=== PATIENT | male | born 1995 | race African-American/Black ===

== ENCOUNTER 2019-04-08 21:42 | Emergency (ER) | payer MEDICAID ==
--- NOTE | 2019-04-08 21:46 | NUR ---
ED Nurse Note: Calling Pt first time in waiting room, Pt is not in waiting room
--- NOTE | 2019-04-08 21:59 | NUR ---
ED Nurse Note: Calling Pt 2nd time, Pt is not in waiting room
--- NOTE | 2019-04-08 22:27 | NUR ---
ED Nurse Note: Calling Pt final time, Pt is not in waiting room.
== END 2019-04-08 22:27 | disposition left against medical advice (07) ==
LOC: EMR 21:45
DX: Z53.21 Procedure and treatment not carried out due to patient leaving prior to being seen by health care provider (principal)

== ENCOUNTER 2019-04-08 22:48 | Emergency (ER) | payer MEDICAID ==
[~2019-04-08] VITALS: Ht 170.2 cm; Wt 69.4 kg
[2019-04-08 22:56] VITALS: BP 127/75
--- NOTE | 2019-04-08 22:56 | NUR ---
ED Nurse Note: Pt arrived ED from home, c/o to R/O STD and for Medications. Pt is A/O X 4. Vital signs stable at this time, waiting for orders.
--- NOTE | 2019-04-08 23:18 | Emergency Room Report ---
History of Present Illness General Chief Complaint: Male Urogenital Problems Source: Patient Present Illness HPI Patient recently told he has syphilis in the early stages. He denies any fevers , chills, rashes, skin lesions, dysuria. He was sent here to get the penicillin G shot IM. Allergies: Coded Allergies: No Known Allergies (Unverified , 04/08/19) Patient History Past Medical History: see triage record Social History: Reports: smoking Social History Narrative With girlfriend Reviewed Nursing Documentation: PMH: Agreed; PSxH: Agreed Nursing Documentation-PMH Hx Asthma: Yes Review of Systems All Other Systems: negative except mentioned in HPI Physical Exam Vital Signs Date Time Temp Pulse Resp B/P (MAP) Pulse Ox O2 Delivery O2 Flow Rate FiO2 04/08/19 22:50 98.2 84 18 98 Room Air General Appearance: well appearing, no apparent distress, GCS 15 Head: normocephalic, atraumatic Eyes: bilateral eye normal inspection, bilateral eye PERRL ENT: hearing grossly normal, normal voice Neck: full range of motion, supple Respiratory: no respiratory distress, speaking full sentences Cardiovascular #1: regular rate, rhythm Cardiovascular #2: 2+ radial (R) Gastrointestinal: normal inspection Genitourinary: deferred Musculoskeletal: digits/nails normal, gait/station normal Neurologic: alert, oriented x3, normal gait, grossly normal Psychiatric: mood/affect normal Skin: no rash Medical Decision Making Diagnostic Impression: Primary Impression: STD (male) ER Course Patient presents for penicillin G shot with a history of having a positive test for syphilis. Urinalysis is ordered. Pen G is ordered. Urinalysis clear. Patient tolerated shot without difficulty. Discussed the need to follow-up with his doctors. Patient stable for outpatient observation and treatment. Laboratory Tests Test 04/08/19 23:09 Urine Color Yellow Urine Appearance Clear Urine pH 6 (4.5-8.0) Urine Specific [place] 1.020 (1.005-1.035) Urine Protein Negative (NEGATIVE) Urine Glucose (UA) Negative (NEGATIVE) Urine Ketones 1+ (NEGATIVE) H Urine Blood Negative (NEGATIVE) Urine Nitrite Negative (NEGATIVE) Urine Bilirubin Negative (NEGATIVE) Urine Urobilinogen 1 MG/DL (0.0-1.0) H Urine Leukocyte Esterase 1+ (NEGATIVE) H Urine RBC 0-2 /HPF (0 - 0) H Urine WBC 0-2 /HPF (0 - 0) Urine Squamous Epithelial Cells Occasional /LPF Urine Bacteria Occasional /HPF (NONE) Chlamydia trachomatis RNA Pending Neisseria gonorrhoeae RNA Pending Last Vital Signs Date Time Temp Pulse Resp B/P (MAP) Pulse Ox O2 Delivery O2 Flow Rate FiO2 04/09/19 00:17 98.2 82 18 127/75 98 Room Air Status: improved Disposition: HOME, SELF-CARE Condition: Improved Darryl Boyd MD April 08, 2019 23:18
[2019-04-08 23:27] LABS: APPEARANCE,URINE CLEAR; BILIRUBIN, URINE NEGATIVE (NEGATIVE); GLUCOSE, URINE (UA) NEGATIVE (NEGATIVE); KETONES,URINE 1+ (NEGATIVE); LEUKOCYTE ESTERASE ,URINE 1+ (NEGATIVE); NITRITE,URINE NEGATIVE (NEGATIVE); PH,URINE 6 (4.5-8.0); PROTEIN,URINE NEGATIVE (NEGATIVE); UROBILINOGEN,URINE 1 MG/DL (0.0-1.0)
[2019-04-08 23:29] LABS: COLOR,URINE YELLOW
[2019-04-08] MEDS ORDERED: Bicillin LA 2.4MMU/4ML SYR IM ONE (23:30)
--- NOTE | 2019-04-09 | NUR ---
ED Nurse Note: Meds given as ordered.
[2019-04-09 00:17] VITALS: BP 127/75
--- NOTE | 2019-04-09 00:17 | NUR ---
ER DISCHARGE NOTE: Patient is cleared to be discharged per Dr. Boyd. Pt is aox4 on room air with stable vital signs. Pt was given dc and prescription instructions and was able to verbalize understanding. Pt's ID band removed. Pt is able to ambulate with steady gait and took all belongings. Accompanied by his girlfriend.
== END 2019-04-09 00:17 | disposition home or self-care (01) ==
LOC: EMR 23:25
DX: J45.909 Unspecified asthma, uncomplicated (principal)
CPT/HCPCS: 81003; 87491; 87590; 96372; 99283

== ENCOUNTER 2019-05-30 16:03 | Emergency (ER) | payer MEDICAID ==
[~2019-05-30] VITALS: Ht 170.2 cm; Wt 70.3 kg
[2019-05-30 16:05] VITALS: BP 128/86
--- NOTE | 2019-05-30 16:10 | NUR ---
ED Nurse Note: pt brought by RA from home with girlfriend due to abdominal pain that started around 0200. pt had 4 episodes of vomiting. per pt, it was undigestive food. denies any nausea at this time. had regular BM this afternoon. AAO x4. respirations even and non-labored noted. will wait for the further order.
--- NOTE | 2019-05-30 16:12 | Emergency Room Report ---
History of Present Illness General Chief Complaint: Abdominal Pain Source: Patient Present Illness HPI The patient is brought by EMS. He is complaining about vomiting and epigastric pain. This began last night. At this time is vomiting bile. He tried to ingest some chicken broth but this came back up. He tried his girlfriends antiemetic but this also helped only for an hour. He he smoked some THC. This did not help either. He has not vomiting blood. Denies melena. Epigastric pain is fairly constant but sometimes worsens with vomiting. He rates it 7/10 but it goes up to 10/10 when he is vomiting. He moved his bowels and there is no diarrhea. No melena. History of asthma but no wheezing. No fevers or chills. No skin rashes. Allergies: Coded Allergies: No Known Allergies (Unverified , 04/08/19) Patient History Past Medical History: see triage record Social History: Reports: smoking, drug use; Denies: alcohol use Social History Narrative with girlfriend -not working until Friday Reviewed Nursing Documentation: PMH: Agreed; PSxH: Agreed Nursing Documentation-PMH Past Medical History: No Stated History Hx Asthma: Yes Review of Systems All Other Systems: negative except mentioned in HPI Physical Exam Vital Signs Date Time Temp Pulse Resp B/P (MAP) Pulse Ox O2 Delivery O2 Flow Rate FiO2 05/30/19 15:58 98.6 84 14 128/86 (100) 98 Room Air Sp02 EP Interpretation: reviewed, normal General Appearance: well appearing, no apparent distress, GCS 15 Head: normocephalic Eyes: bilateral eye PERRL, bilateral eye Scleral Injection ENT: moist mucus membranes Neck: supple Respiratory: lungs clear, normal breath sounds Cardiovascular #1: regular rate, rhythm Cardiovascular #2: 2+ radial (R) Gastrointestinal: normal inspection, normal bowel sounds, no mass, non- distended, no guarding, no rebound, tenderness - Epigastric, scaphoid Musculoskeletal: back normal, normal range of motion Neurologic: alert, oriented x3, grossly normal Psychiatric: mood/affect normal Skin: no rash Medical Decision Making Diagnostic Impression: Primary Impression: Epigastric pain Additional Impression: Nausea and vomiting Qualified Codes: R11.2 - Nausea with vomiting, unspecified ER Course Patient presents with nausea vomiting and epigastric pain since last night. Differential includes gastritis, gastroenteritis, reflux, pancreatitis amongst others. Patient will be evaluated with labs. The patient will receive IV hydration, Reglan, Benadryl, Pepcid and morphine. No imaging studies indicated at this time. Labs with normal WBC. CMP unremarkable. Patient improving. Given water. Tolerated well Repeat exam abdomen soft. Discussed treatment plan with patient and observation at home. Patient stable for outpatient observation and treatment with follow-up by his private doctor. Laboratory Tests Test 05/30/19 16:15 05/30/19 17:20 White Blood Count 7.7 K/UL (4.8-10.8) Red Blood Count 5.09 M/UL (4.70-6.10) Hemoglobin 16.1 G/DL (14.2-18.0) Hematocrit 46.5 % (42.0-52.0) Mean Corpuscular Volume 91 FL (80-99) Mean Corpuscular Hemoglobin 31.7 PG (27.0-31.0) H Mean Corpuscular Hemoglobin Concent 34.7 G/DL (32.0-36.0) Red Cell Distribution Width 11.4 % (11.6-14.8) L Platelet Count 285 K/UL (150-450) Mean Platelet Volume 6.4 FL (6.5-10.1) L Neutrophils (%) (Auto) 77.2 % (45.0-75.0) H Lymphocytes (%) (Auto) 13.7 % (20.0-45.0) L Monocytes (%) (Auto) 6.9 % (1.0-10.0) Eosinophils (%) (Auto) 1.5 % (0.0-3.0) Basophils (%) (Auto) 0.7 % (0.0-2.0) Prothrombin Time 10.5 SEC (9.30-11.50) Prothrombin Time INR 1.0 (0.9-1.1) PTT 27 SEC (23-33) Sodium Level 140 MMOL/L (136-145) Potassium Level 3.5 MMOL/L (3.5-5.1) Chloride Level 104 MMOL/L (98-107) Carbon Dioxide Level 24 MMOL/L (21-32) Anion Gap 12 mmol/L (5-15) Blood Urea Nitrogen 13 mg/dL (7-18) Creatinine 1.0 MG/DL (0.55-1.30) Estimate Glomerular Filtration Rate > 60 mL/min (>60) Glucose Level 113 MG/DL (74-106) H Calcium Level 9.7 MG/DL (8.5-10.1) Total Bilirubin 0.9 MG/DL (0.2-1.0) Aspartate Amino Transferase (AST) 13 U/L (15-37) L Alanine Aminotransferase (ALT) 14 U/L (12-78) Alkaline Phosphatase 88 U/L (46-116) Total Creatine Kinase 160 U/L (26-308) Total Protein 8.1 G/DL (6.4-8.2) Albumin 4.1 G/DL (3.4-5.0) Globulin 4.0 g/dL Albumin/Globulin Ratio 1.0 (1.0-2.7) Lipase 70 U/L (73-393) L Urine Color Pale yellow Urine Appearance Clear Urine pH 8 (4.5-8.0) Urine Specific [place] 1.010 (1.005-1.035) Urine Protein Negative (NEGATIVE) Urine Glucose (UA) Negative (NEGATIVE) Urine Ketones 1+ (NEGATIVE) H Urine Blood Negative (NEGATIVE) Urine Nitrite Negative (NEGATIVE) Urine Bilirubin Negative (NEGATIVE) Urine Urobilinogen 1 MG/DL (0.0-1.0) H Urine Leukocyte Esterase Negative (NEGATIVE) Last Vital Signs Date Time Temp Pulse Resp B/P (MAP) Pulse Ox O2 Delivery O2 Flow Rate FiO2 05/30/19 17:40 98.1 80 16 124/78 99 Room Air Status: improved Disposition: HOME, SELF-CARE Condition: Improved Scripts Famotidine (PEPCID AC) 20 Mg Tablet 20 MG PO DAILY, #20 TAB Prov: Darryl Boyd MD 05/30/19 Ondansetron Odt* (ZOFRAN ODT*) 4 Mg Tab.rapdis 4 MG BC EVERY 8 HOURS PRN for Nausea & Vomiting, #6 TAB 0 Refills Prov: Darryl Boyd MD 05/30/19 Tramadol Hcl* (ULTRAM*) 50 Mg Tablet 50 MG ORAL Q6H PRN for For Pain, #6 TAB 0 Refills Prov: Darryl Boyd MD 05/30/19 Darryl Boyd MD May 30, 2019 16:12
[2019-05-30] MEDS ORDERED: DiphenhydrAMINE 50mg/ml Inj IVP ONE (16:15)
[2019-05-30] MEDS ORDERED: Metoclopramide 10mg/2ml Inj IVP ONE (16:15)
[2019-05-30] MEDS ORDERED: Morphine Sulfate 2mg/ml Inj(IV/IM USE ONLY) IVP ONE (16:15)
[2019-05-30 16:33] LABS: BASOPHILS % (AUTO) 0.7 % (0.0-2.0); EOSINOPHILS % (AUTO) 1.5 % (0.0-3.0); HEMATOCRIT 46.5 % (42.0-52.0); HEMOGLOBIN 16.1 G/DL (14.2-18.0); LYMPHOCYTES % (AUTO) 13.7 % (20.0-45.0); MEAN CORPUSCULAR VOLUME 91 FL (80-99); MONOCYTES % (AUTO) 6.9 % (1.0-10.0); NEUTROPHILS % (AUTO) 77.2 % (45.0-75.0); PLATELET COUNT 285 K/UL (150-450); RED BLOOD COUNT 5.09 M/UL (4.70-6.10); RED CELL DISTRIBUTION WIDTH 11.4 % (11.6-14.8); WHITE BLOOD COUNT 7.7 K/UL (4.8-10.8)
[2019-05-30 16:46] LABS: ANION GAP 12 mmol/L (5-15); BLOOD UREA NITROGEN 13 mg/dL (7-18); CALCIUM 9.7 MG/DL (8.5-10.1); CARBON DIOXIDE 24 MMOL/L (21-32); CHLORIDE 104 MMOL/L (98-107); POTASSIUM 3.5 MMOL/L (3.5-5.1); SODIUM 140 MMOL/L (136-145)
[2019-05-30 16:51] LABS: ALANINE AMINOTRANSFERASE 14 U/L (12-78); ALBUMIN 4.1 G/DL (3.4-5.0); ALKALINE PHOSPHATASE 88 U/L (46-116); ASPARTATE AMINO TRANSFERASE 13 U/L (15-37); BILIRUBIN,TOTAL 0.9 MG/DL (0.2-1.0); CREATINE KINASE 160 U/L (26-308)
[2019-05-30] MEDS ORDERED: ONDANSETRON ODT4 MG BC (17:31)
[2019-05-30] MEDS ORDERED: TRAMADOL HCL50 MG ORAL (17:31)
[2019-05-30] MEDS ORDERED: PEPCID AC20 M2 PO (17:31)
[2019-05-30 17:34] LABS: APPEARANCE,URINE CLEAR; BILIRUBIN, URINE NEGATIVE (NEGATIVE); COLOR,URINE PALE YELLOW; GLUCOSE, URINE (UA) NEGATIVE (NEGATIVE); KETONES,URINE 1+ (NEGATIVE); LEUKOCYTE ESTERASE ,URINE NEGATIVE (NEGATIVE); NITRITE,URINE NEGATIVE (NEGATIVE); PH,URINE 8 (4.5-8.0); PROTEIN,URINE NEGATIVE (NEGATIVE); UROBILINOGEN,URINE 1 MG/DL (0.0-1.0)
--- NOTE | 2019-05-30 17:41 | NUR ---
ER DISCHARGE NOTE: Patient is cleared to be discharged per ERMD with girlfriend, pt is aox4, on room air, with stable vital signs. pt was given dc and prescription instructions, pt was able to verbalize understanding, pt id band and iv site removed without complications. pt is able to ambulate with steady gait. pt took all belongings.
== END 2019-05-30 17:42 | disposition home or self-care (01) ==
LOC: EDBD 16:03 → EMR 17:30
DX: R10.12 Left upper quadrant pain (principal); R11.2 Nausea with vomiting, unspecified; F17.200 Nicotine dependence, unspecified, uncomplicated
CPT/HCPCS: 36415; 80053; 81003; 82550; 83690; 85025; 85610; 85730; 96361; 96374; 96375; 99284; J1200; J2270; J2765; S0028

== ENCOUNTER 2020-05-06 19:37 | Emergency (ER) | payer MEDICAID ==
[~2020-05-06] VITALS: Ht 170.2 cm; Wt 68.0 kg
[~2020-05-06 19:37] MED LIST: ONDANSETRON ODT4 MG BC; PEPCID AC20 M2 PO; TRAMADOL HCL50 MG ORAL
[2020-05-06] MEDS ORDERED: Tetanus/Diptheria/Pertussis IM ONE (19:45)
[2020-05-06] MEDS ORDERED: Clindamycin 150mg cap ORAL SCH (19:45)
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
[2020-05-06 19:53] VITALS: BP 125/78
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
--- NOTE | 2020-05-06 19:57 | NUR ---
ED Nurse Note: Patient taken to CT in stable condition
--- NOTE | 2020-05-06 20:09 | NUR ---
ED Nurse Note: Patient returned from CT in stable condition
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
[2020-05-06] MEDS ORDERED: CLINDAMYCIN HC300 MG ORAL (20:33)
[2020-05-06] MEDS ORDERED: PERIDEX15 ML MM (20:33)
[2020-05-06] MEDS ORDERED: TRAMADOL HCL50 MG ORAL (20:33)
[2020-05-06 20:50] VITALS: BP 128/75
--- NOTE | 2020-05-06 20:50 | NUR ---
ER DISCHARGE NOTE: Patient is cleared to be discharged per ERMD, pt is aox4, on room air, with stable vital signs. pt was given dc and prescription instructions, pt was able to verbalize understanding, pt id band removed. pt is able to ambulate with steady gait. pt took all belongings. pt was given CD and report go CT results and [facility] information. Patient discharged in stable condition.
== END 2020-05-06 20:50 | disposition home or self-care (01) ==
LOC: EMR 20:24
DX: S02.642A Fracture of ramus of left mandible, initial encounter for closed fracture (principal); S02.601A Fracture of unspecified part of body of right mandible, initial encounter for closed fracture; S02.5XXA Fracture of tooth (traumatic), initial encounter for closed fracture; Y04.2XXA Assault by strike against or bumped into by another person, initial encounter; Y92.9 Unspecified place or not applicable; Z23 Encounter for immunization
CPT/HCPCS: 70486; 90471; 90715; Z7502; 99284